=== PATIENT | female | born 1980 | race African-American/Black ===

== ENCOUNTER 2016-09-11 20:12 | Emergency (ER) | payer SELFPAY ==
[2016-09-11] MEDS ORDERED: ACETAMINOPHEN 325 MG TABLET PO ONE (22:24)
--- NOTE | 2016-09-11 22:25 | ER Document Report ---
ED Medical Screen (RME) - General Stated Complaint: COUGH Mode of Arrival: Ambulatory Information source: Patient Notes: Patient complains of generalized body aches that started yesterday. Patient reports right flank pain that started today. Patient reports vomiting once yesterday but none today. No diarrhea. Patient does take antiviral medications , but reports she has not had any recent lab work to check her viral load. Patient complains of chest pain with coughing. hx: HIV, herpes, HPV I have greeted and performed a rapid initial assessment of this patient. A comprehensive ED assessment and evaluation of the patient, analysis of test results and completion of the medical decision making process will be conducted by additional ED providers. TRAVEL OUTSIDE OF THE [place] 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 Denies: Hx Pacemaker - Immunizations Immunizations up to date: Yes Hx Diphtheria, Pertussis, Tetanus Vaccination: Yes Physical Exam - Vital signs Vitals: Temp Pulse Resp BP Pulse Ox 100.1 F 92 18 122/73 100 09/11/16 22:13 09/11/16 22:13 09/11/16 22:13 09/11/16 22:13 09/11/16 22:13 - Respiratory Respiratory status: No respiratory distress Breath sounds: Nonproductive cough Course - Vital Signs Vital signs: Temp Pulse Resp BP Pulse Ox 100.1 F 92 18 122/73 100 09/11/16 22:13 09/11/16 22:13 09/11/16 22:13 09/11/16 22:13 09/11/16 22:13
[2016-09-12 00:18] LABS: APPEARANCE,URINE SLIGHTLY-CLOUDY; BILIRUBIN,URINE NEGATIVE (NEGATIVE); GLUCOSE, URINE NEGATIVE (NEGATIVE); KETONES,URINE NEGATIVE (NEGATIVE); LEUKOCYTE ESTERASE,URINE NEGATIVE (NEGATIVE); NITRITE,URINE NEGATIVE (NEGATIVE); PROTEIN,URINE NEGATIVE (NEGATIVE); URINE SPECIFIC GRAVITY 1.027; UROBILINOGEN,URINE NEGATIVE mg/dL (<2.0)
[2016-09-12 00:35] LABS: ALANINE AMINOTRANSFERASE 25 U/L (9-52); ALBUMIN 4.3 g/dL (3.5-5.0); ALKALINE PHOSPHATASE 54 U/L (38-126); ANION GAP 11 (5-19); ASPARTATE AMINO TRANSFERASE 18 U/L (14-36); BILIRUBIN,TOTAL 0.5 mg/dL (0.2-1.3); BLOOD UREA NITROGEN 7 mg/dL (7-20); CALCIUM 9.3 mg/dL (8.4-10.2); CARBON DIOXIDE 24 mmol/L (22-30); CHLORIDE 104 mmol/L (98-107); CREATININE RESULT 0.67 mg/dL (0.52-1.25); GLUCOSE 93 mg/dL (75-110); POTASSIUM 3.7 mmol/L (3.6-5.0); SODIUM 138.7 mmol/L (137-145); TOTAL PROTEIN 7.2 g/dL (6.3-8.2)
[2016-09-12 00:52] LABS: HEMATOCRIT 37.3 % (36.0-47.0); HEMOGLOBIN 12.4 g/dL (12.0-15.5); HGB HCT DIFFERENCE -0.1; MEAN CORPUSCULAR HEMOGLOBIN 34.1 pg (27.0-33.4); MEAN CORPUSCULAR HGB CONC 33.4 g/dL (32.0-36.0); MEAN CORPUSCULAR VOLUME 102 fl (80-97); RED BLOOD COUNT 3.65 10^6/uL (3.72-5.28); WHITE BLOOD COUNT 4.7 10^3/uL (4.0-10.5)
[2016-09-12 01:00] LABS: BAND NEUTROPHILS % (MANUAL) 1 % (3-5); BASOPHILS % (MANUAL) 0 % (0-2); EOSINOPHILS % (MANUAL) 2 % (0-6); LYMPHOCYTES % (MANUAL) 21 % (13-45); TOTAL CELLS COUNTED 100
[2016-09-12 01:01] LABS: BURR CELLS SLIGHT; OVALOCYTES SLIGHT; POIKILOCYTOSIS SLIGHT; TOXIC GRANULATION SLIGHT; TOXIC VACUOLATION PRESENT
[2016-09-12] MEDS ORDERED: ONDANSETRON ODT 4 MG TAB (6 TAB/DSPK) PO PRN (01:53)
[2016-09-12] MEDS ORDERED: ONDANSETRON 4 MG TAB.RAPDIS PO ONE (01:53)
[2016-09-12] MEDS ORDERED: ACETAMINOPHEN WITH CODEINE #3 TABLET PO ONE (01:53)
[2016-09-12] MEDS ORDERED: ALBUTEROL SULFATE HFA (90 MCG/PUFF) 8 GM MDI (1 MDI/ER DISP) IH ONE (01:54)
--- NOTE | 2016-09-12 02:02 | ER Document Report ---
ED Respiratory Problem - General Chief Complaint: Cough Stated Complaint: COUGH Mode of Arrival: Ambulatory TRAVEL OUTSIDE OF THE [place] IN LAST 30 DAYS: No - Related Data Allergies/Adverse Reactions: amoxicillin [Amoxicillin] Allergy (Mild, Verified 07/18/15 00:10) "CANT EAT" azithromycin [From Zithromax Z-Matheus] Allergy (Mild, Verified 07/18/15 00:10) "MAKES ME SICK" Past Medical History - General Information source: Patient - Social History Smoking Status: Current Every Day Smoker Frequency of alcohol use: None Drug Abuse: None Family History: Reviewed & Not Pertinent Patient has suicidal ideation: No Patient has homicidal ideation: No - Past Medical History Cardiac Medical History: Reports: Hx Hypertension Pulmonary Medical History: Reports: Hx Asthma, Hx Bronchitis, Hx Pneumonia Renal/ Medical History: Denies: Hx Peritoneal Dialysis Musculoskeltal Medical History: Reports Hx Arthritis - neck, Reports Hx Musculoskeletal Deformity Skin Medical History: Reports Hx Eczema Psychiatric Medical History: Reports: Hx Depression Infectious Medical History: Reports: Hx HIV Past Surgical History: Reports: Hx Breast Surgery - right lumpectomy, Hx Section. Denies: Hx Pacemaker - Immunizations Immunizations up to date: Yes Hx Diphtheria, Pertussis, Tetanus Vaccination: Yes Hx Pneumococcal Vaccination: 05/06/11 Physical Exam - Vital signs Vitals: Temp Pulse Resp BP Pulse Ox 100.1 F 92 18 122/73 100 09/11/16 22:13 09/11/16 22:13 09/11/16 22:13 09/11/16 22:13 09/11/16 22:13 Course - Vital Signs Vital signs: Temp Pulse Resp BP Pulse Ox 100.1 F 92 18 122/73 100 09/11/16 22:13 09/11/16 22:13 09/11/16 22:13 09/11/16 22:13 09/11/16 22:13 - Laboratory Result Diagrams: 09/11/16 23:45 09/11/16 23:45 Laboratory results interpreted by me: 09/11/16 23:45 RBC 3.65 L MCV 102 H MCH 34.1 H Band Neutrophils % 1 L Monocytes % (Manual) 17 H Discharge - Discharge Clinical Impression: Influenza-like illness Condition: Stable Disposition: HOME, SELF-CARE Instructions: Influenza (OM), Upper Respiratory Illness (OM) Additional Instructions: Please call [phone] for the results of your flu swab. Prescriptions: Acetaminophen with Codeine [Tylenol with Codeine #3 Tablet] 1 tab PO Q4 PRN #14 tab PRN Reason: Oseltamivir Phosphate [Tamiflu 75 mg Capsule] 75 mg PO BID #10 capsule Forms: Return to Work
[2016-09-12 02:44] VITALS: BP 126/84
--- NOTE | 2016-09-12 03:59 | ER Document Report ---
ED General - General Mode of Arrival: Ambulatory Information source: Patient TRAVEL OUTSIDE OF THE [place] IN LAST 30 DAYS: No - HPI Patient complains to provider of: Cough Onset: Last week Onset/Duration: Intermittent, Worse Associated symptoms: Body/muscle aches, Nonproductive cough, Fever, Sore throat <SANJUANITA CHAMBERS - Last Filed: 09/12/16 03:59> <ANA CHAVEZ - Last Filed: 09/12/16 04:39> - General Chief Complaint: Cough Stated Complaint: COUGH Notes: Patient is a 35-year-old female with history of HIV presenting to the emergency department concerned of cough and sore throat for the past week intermittently, but it became acutely worse yesterday. Patient states that she had a fever and was given Tylenol here in the emergency room. Patient also complains of body aches. Patient states that she received the flu shot this year, and that her last CD4 was last month. Patient reports that she is compliant with all of her HIV medications. (SANJUANITA CHAMBERS) - Related Data Allergies/Adverse Reactions: amoxicillin [Amoxicillin] Allergy (Mild, Verified 07/18/15 00:10) "CANT EAT" azithromycin [From Zithromax Z-Matheus] Allergy (Mild, Verified 07/18/15 00:10) "MAKES ME SICK" Past Medical History - General Information source: Patient - Social History Smoking Status: Current Every Day Smoker Frequency of alcohol use: None Drug Abuse: None Lives with: Spouse/Significant other Family History: Reviewed & Not Pertinent Patient has suicidal ideation: No Patient has homicidal ideation: No - Past Medical History Cardiac Medical History: Reports: Hx Hypertension Pulmonary Medical History: Reports: Hx Asthma, Hx Bronchitis, Hx Pneumonia Renal/ Medical History: Denies: Hx Peritoneal Dialysis Musculoskeltal Medical History: Reports Hx Arthritis - neck, Reports Hx Musculoskeletal Deformity Skin Medical History: Reports Hx Eczema Psychiatric Medical History: Reports: Hx Depression Infectious Medical History: Reports: Hx HIV, Other - Herpes, HPV Past Surgical History: Reports: Hx Breast Surgery - right lumpectomy, Hx Section - Immunizations Immunizations up to date: Yes Hx Diphtheria, Pertussis, Tetanus Vaccination: Yes Hx Pneumococcal Vaccination: 05/06/11 <SANJUANITA CHAMBERS - Last Filed: 09/12/16 03:59> Review of Systems - Review of Systems Constitutional: See HPI, Fever, Other - Body aches EENT: See HPI, Throat pain Cardiovascular: No symptoms reported Respiratory: See HPI, Cough Gastrointestinal: No symptoms reported Genitourinary: No symptoms reported Female Genitourinary: No symptoms reported Musculoskeletal: No symptoms reported Skin: No symptoms reported Hematologic/Lymphatic: No symptoms reported Neurological/Psychological: No symptoms reported -: Yes All other systems reviewed and negative <SANJUANITA CHAMBERS - Last Filed: 09/12/16 03:59> Physical Exam - Vital signs Interpretation: No: Febrile - General General appearance: Alert - HEENT Head: Normocephalic, Atraumatic Eyes: Normal Pupils: PERRL Pharynx: No: Erythema, Exudate - Respiratory Respiratory status: No respiratory distress Chest status: Nontender Breath sounds: Nonproductive cough Chest palpation: Normal - Cardiovascular Rhythm: Regular Heart sounds: Normal auscultation Murmur: No - Abdominal Inspection: Normal Distension: No distension Bowel sounds: Normal Tenderness: Nontender Organomegaly: No organomegaly - Back Back: Normal, Nontender - Extremities General upper extremity: Normal inspection, Nontender, Normal color, Normal ROM , Normal temperature General lower extremity: Normal inspection, Nontender, Normal color, Normal ROM , Normal temperature, Normal weight bearing - Neurological Neuro grossly intact: Yes Cognition: Normal Robert Coma Scale Eye Opening: Spontaneous Robert Coma Scale Verbal: Oriented [place] Coma Scale Motor: Obeys Commands [place] Coma Scale Total: 15 Speech: Normal - Psychological Associated symptoms: Normal affect, Normal mood - Skin Skin Temperature: Warm Skin Moisture: Dry Skin Color: Normal <SANJUANITA CHAMBERS - Last Filed: 09/12/16 03:59> Course - Laboratory Result Diagrams: 09/11/16 23:45 09/11/16 23:45 <SANJUANITA CHAMBERS - Last Filed: 09/12/16 03:59> - Laboratory Result Diagrams: 09/11/16 23:45 09/11/16 23:45 <ANA CHAVEZ - Last Filed: 09/12/16 04:39> - Re-evaluation Re-evalutation: 09/12/16 Patient is a [age] female who comes in complaining of cough, congestion, sore throat, body aches. Blood work within normal limits. Patient is been taking her antivirals. Patient was last seen in the HIV clinic last month. Lungs are clear. No acute findings on chest x-ray. Patient will be flu swab which she does not want to wait for results. She'll be given a prescription for Tamiflu and is to call for the results of her flu swab. She has been informed that sometimes the test is unreliable and could have a false negative. Patient understands and agrees with this plan. She'll be given Tylenol with codeine for cough. No evidence for bacterial infection. Return if immediately if any worsening or concerning symptoms. Understands and agrees with plan. (ANA CHAVEZ) - Vital Signs Vital signs: Temp Pulse Resp BP Pulse Ox 98.4 F 75 17 126/84 H 98 09/12/16 02:14 09/12/16 02:14 09/12/16 02:14 09/12/16 02:14 09/12/16 02:14 (SANJUANITA CHAMBERS) (ANA CHAVEZ) - Laboratory Laboratory results interpreted by me: 09/11/16 23:45 RBC 3.65 L MCV 102 H MCH 34.1 H Band Neutrophils % 1 L Monocytes % (Manual) 17 H (SANJUANITA CHAMBERS) (ANA CHAVEZ) Discharge <SANJUANITA CHAMBERS - Last Filed: 09/12/16 03:59> <ANA CHAVEZ - Last Filed: 09/12/16 04:39> - Discharge Clinical Impression: Influenza-like illness Condition: Stable Disposition: HOME, SELF-CARE Instructions: Influenza ([facility]), Upper Respiratory Illness ([facility]) Additional Instructions: Please call [phone] for the results of your flu swab. Prescriptions: Acetaminophen with Codeine [Tylenol with Codeine #3 Tablet] 1 tab PO Q4 PRN #14 tab PRN Reason: Oseltamivir Phosphate [Tamiflu 75 mg Capsule] 75 mg PO BID #10 capsule Forms: Return to Work Scribe Attestation: 09/12/16 04:39 I personally performed the services described in the documentation, reviewed and edited the documentation which was dictated to the scribe in my presence, and it accurately records my words and actions. (ANA CHAVEZ) Scribe Documentation - Scribe Written by Scribe:: Sanjuanita Chambers 09/12/2016 [id number] acting as scribe for :: Maryann <SANJUANITA CHAMBERS - Last Filed: 09/12/16 03:59>
== END 2016-09-12 02:40 | disposition home or self-care (01) ==
LOC: ER 20:12
DX: J11.1 Influenza due to unidentified influenza virus with other respiratory manifestations (principal); M79.1 Myalgia; R05 Cough; I10 Essential (primary) hypertension; J45.909 Unspecified asthma, uncomplicated; F17.200 Nicotine dependence, unspecified, uncomplicated; Z21 Asymptomatic human immunodeficiency virus [HIV] infection status; Z79.899 Other long term (current) drug therapy; Z88.0 Allergy status to penicillin; Z88.1 Allergy status to other antibiotic agents; Z87.01 Personal history of pneumonia (recurrent)
CPT/HCPCS: 99283; 36415; 87040; 84703; 85025; 80053; 81001; 87804; 71020; S0119; J3490

== ENCOUNTER 2017-03-25 06:33 | Emergency (ER) | payer SELFPAY ==
--- NOTE | 2017-03-25 07:06 | ER Document Report ---
ED General - General Mode of Arrival: Ambulatory Information source: Patient TRAVEL OUTSIDE OF THE [place] IN LAST 30 DAYS: No - HPI Onset: Other - 2-3 days ago; refer to HPI notes Associated symptoms: Productive cough, Earache, Sore throat Similar symptoms previously: Yes Recently seen / treated by doctor: No <JAIRO SIMS - Last Filed: 03/25/17 07:42> <MIHAELA GREEN - Last Filed: 03/25/17 09:02> - General Chief Complaint: Cold Symptoms Stated Complaint: SORE THROAT Time Seen by Provider: 03/25/17 06:50 - HPI Notes: Patient is a 36 year old female presenting to the emergency department for cold like symptoms x 2-3 days. Patient states she has a productive cough with clear- yellow sputum. Patient has throat pain which is exacerbated with swallowing and coughing. Patient also states she has some chest discomfort but only when she is coughing. Patient also complains of congestion, ear discomfort, and general malaise. Patient states she was diagnosed with bacterial vaginosis and is taking Flagyl and also states she recently started control. Patient denies any fever but states she has not taken her temperature. Patient is to see Dr. Gerber however she states she does not have Medicaid anymore and she does not know what to do which is why she came to the emergency department. Patient is allergic to amoxicillin and azithromycin. Patient has a history of HIV and is treated for such at the clinic in [place]. (JAIRO SIMS) - Related Data Allergies/Adverse Reactions: amoxicillin [Amoxicillin] Allergy (Mild, Verified 03/25/17 06:39) "CANT EAT" azithromycin [From Zithromax Z-Matheus] Allergy (Mild, Verified 03/25/17 06:39) "MAKES ME SICK" Past Medical History - General Information source: Patient - Social History Smoking Status: Current Every Day Smoker Cigarette use (# per day): Yes - 1 ppd Family History: None Patient has suicidal ideation: No Patient has homicidal ideation: No - Past Medical History Cardiac Medical History: Reports: Hx Hypertension Pulmonary Medical History: Reports: Hx Asthma, Hx Bronchitis, Hx Pneumonia Musculoskeltal Medical History: Reports Hx Arthritis - neck, Reports Hx Musculoskeletal Deformity Skin Medical History: Reports Hx Eczema Psychiatric Medical History: Reports: Hx Depression Infectious Medical History: Reports: Hx HIV Past Surgical History: Reports: Hx Breast Surgery - right lumpectomy, Hx Section - Immunizations Immunizations up to date: Yes Hx Diphtheria, Pertussis, Tetanus Vaccination: Yes Hx Pneumococcal Vaccination: 05/06/11 <JAIRO SIMS - Last Filed: 03/25/17 07:42> Review of Systems - Review of Systems Constitutional: See HPI, Malaise. denies: Fever EENT: See HPI, Ear pain, Nose congestion, Nose discharge, Throat pain Cardiovascular: See HPI, Chest pain Respiratory: See HPI, Cough, Sputum Gastrointestinal: No symptoms reported Genitourinary: No symptoms reported Female Genitourinary: No symptoms reported Musculoskeletal: No symptoms reported Skin: No symptoms reported Hematologic/Lymphatic: No symptoms reported Neurological/Psychological: No symptoms reported -: Yes All other systems reviewed and negative <JAIRO SIMS - Last Filed: 03/25/17 07:42> Physical Exam - Vital signs Interpretation: Normal <JAIRO SIMS - Last Filed: 03/25/17 07:42> <MIHAELA GREEN - Last Filed: 03/25/17 09:02> - Vital signs Vitals: Temp Pulse Resp BP Pulse Ox 98.1 F 66 16 127/78 H 97 03/25/17 06:39 03/25/17 06:39 03/25/17 06:39 03/25/17 06:39 03/25/17 06:39 - Notes Notes: GENERAL: Alert, interacts well. No acute distress. HEAD: Normocephalic, atraumatic. EYES: Appear normal. Pupils equal, round, and reactive to light. ENT: Moist mucus membranes. Tongue midline. Nasal drainage. Oropharynx has erythema and uvula edema. TM's are slightly retracted but clear with no erythema. NECK: Full range of motion. Supple. Trachea midline. No anterior cervical lymphadenopathy. LUNGS: Coarse breath sounds bilaterally, cough, no wheezes, rales, or rhonchi. No respiratory distress. HEART: Regular rate and rhythm. No murmurs, gallops, or rubs. EXTREMITIES: Moves all 4 extremities spontaneously. Normal strength. No edema. NEUROLOGICAL: Alert and oriented x3. Normal speech. No focal neurological deficits. GSC 15. PSYCH: Normal affect, normal mood. SKIN: Warm, dry, normal turgor. No rashes or lesions noted. (JAIRO SIMS) Course - Laboratory Result Diagrams: 03/25/17 08:02 <MIHAELA GREEN - Last Filed: 03/25/17 09:02> - Vital Signs Vital signs: Temp Pulse Resp BP Pulse Ox 98.1 F 66 16 127/78 H 97 03/25/17 06:39 03/25/17 06:39 03/25/17 06:39 03/25/17 06:39 03/25/17 06:39 - Laboratory Laboratory results interpreted by me: 03/25/17 08:02 MCV 106 H MCH 35.9 H Discharge <JAIRO SIMS - Last Filed: 03/25/17 07:42> <MIHAELA GREEN - Last Filed: 03/25/17 09:02> - Discharge Clinical Impression: Bronchitis Pharyngitis Qualifiers: Pharyngitis/tonsillitis etiology: unspecified etiology Qualified Code(s): J02.9 - Acute pharyngitis, unspecified Upper respiratory tract infection Qualifiers: URI type: unspecified URI Qualified Code(s): J06.9 - Acute upper respiratory infection, unspecified Condition: Stable Disposition: HOME, SELF-CARE Additional Instructions: Upper Respiratory Illness You have a viral infection of the respiratory passages -- a "cold." This common infection causes nasal congestion, drainage, and often sore throat and cough. It is caused by a virus and is highly contagious. The disease usually lasts a week or more, though the worst symptoms are usually over in 3 or 4 days. There is no "cure" for the viral infection -- it must run its course. If there is a complication, such as bacterial infection in the nose, sinuses, middle ear, or bronchial tubes, antibiotics may be required, but antibiotics won 't affect the virus. If you smoke, you should STOP!! Drink plenty of fluids. A humidifier may help. An expectorant medication or decongestant may make you more comfortable. Use acetaminophen or ibuprofen for fever or aches. See the doctor if fever persists over two or three days, if there is any significant worsening of your symptoms, or if you simply fail to improve as expected. TAKE THE MEDICATION PRESCRIBED. DRINK PLENTY OF FLUIDS. GET PLENTY OF REST. TRY TO STOP SMOKING. FOLLOW UP WITH A LOCAL MEDICAL DOCTOR IF NOT IMPROVING. Prescriptions: Hydrocodone/Acetaminophen [Hydrocodon-Acetaminophen 5-325] 1 each PO Q4 PRN #15 tablet PRN Reason: Prednisone 10 mg PO TID #10 tablet Scribe Attestation: 03/25/17 09:02 I personally performed the services described in the documentation, reviewed and edited the documentation which was dictated to the scribe in my presence, and it accurately records my words and actions. (MIHAELA GREEN) Scribe Documentation - Scribe Written by Rosario:: Rosario Connors 03/25/2017 7:45 acting as scribe for :: Kristy <JAIRO SIMS - Last Filed: 03/25/17 07:42>
--- NOTE | 2017-03-25 07:45 | RADIOLOGY REPORT (SQ) ---
EXAM DESCRIPTION: CHEST PA/LAT COMPLETED DATE/TIME: 03/25/2017 7:27 am REASON FOR STUDY: cough, congestion, HIV+ COMPARISON: Chest x-ray 09/11/2016. EXAM PARAMETERS: NUMBER OF VIEWS: two views TECHNIQUE: Digital Frontal and Lateral radiographic views of the chest acquired. RADIATION DOSE: NA LIMITATIONS: none FINDINGS: LUNGS AND PLEURA: No consolidation, pneumothorax or pleural effusion. MEDIASTINUM AND HILAR STRUCTURES: No masses or contour abnormalities. HEART AND VASCULAR STRUCTURES: Heart normal size. No evidence for failure. BONES: No acute findings. HARDWARE: None in the chest. IMPRESSION: No acute radiographic finding in the chest. TECHNICAL DOCUMENTATION: JOB ID: [id number] [employer]- All Rights Reserved
[2017-03-25 08:13] LABS: ABSOLUTE BASOPHILS # (AUTO) 0.1 10^3/uL (0.0-0.2); ABSOLUTE EOSINOPHILS # (AUTO) 0.1 10^3/uL (0.0-0.6); ABSOLUTE LYMPHOCYTES (AUTO) 1.4 10^3/uL (0.5-4.7); ABSOLUTE MONOCYTES (AUTO) 0.9 10^3/uL (0.1-1.4); ABSOLUTE NEUT (AUTO) 4.7 10^3/uL (1.7-8.2); BASOPHILS % (AUTO) 0.7 % (0-2); EOSINOPHILS % (AUTO) 1.3 % (0-6); HEMATOCRIT 39.5 % (36.0-47.0); HEMOGLOBIN 13.4 g/dL (12.0-15.5); HGB HCT DIFFERENCE 0.7; MEAN CORPUSCULAR HEMOGLOBIN 35.9 pg (27.0-33.4); MEAN CORPUSCULAR VOLUME 106 fl (80-97); MONOCYTES % (AUTO) 12.8 % (3-13); RED BLOOD COUNT 3.74 10^6/uL (3.72-5.28); RED CELL DISTRIBUTION WIDTH 13.3 % (11.5-14.0); SEGMENTED NEUTROPHILS % (AUTO) 66.2 % (42-78); WHITE BLOOD COUNT 7.2 10^3/uL (4.0-10.5)
[2017-03-25] MEDS ORDERED: PREDNISONE 20 MG TABLET PO ONE (09:02)
[2017-03-25] MEDS ORDERED: HYDROCODONE/ACETAMINOPHEN 5-325 MG TABLET PO ONE (09:03)
[2017-03-25 09:12] VITALS: BP 128/79
== END 2017-03-25 09:22 | disposition home or self-care (01) ==
LOC: ER 06:33
DX: J02.9 Acute pharyngitis, unspecified (principal); J06.9 Acute upper respiratory infection, unspecified; J40 Bronchitis, not specified as acute or chronic; R05 Cough; R53.81 Other malaise; R07.89 Other chest pain; R09.81 Nasal congestion; J34.89 Other specified disorders of nose and nasal sinuses; F17.210 Nicotine dependence, cigarettes, uncomplicated; N76.0 Acute vaginitis; B96.89 Other specified bacterial agents as the cause of diseases classified elsewhere; Z88.0 Allergy status to penicillin; Z88.1 Allergy status to other antibiotic agents; Z21 Asymptomatic human immunodeficiency virus [HIV] infection status; Z87.01 Personal history of pneumonia (recurrent)
CPT/HCPCS: 99283; 36415; 85025; 71020; J7512

== ENCOUNTER 2017-08-23 11:44 | Emergency (ER) | payer OTHER ==
[2017-08-23 11:52] VITALS: BP 122/79
[2017-08-23] MEDS ORDERED: CYCLOBENZAPRINE HCL 10 MG TABLET PO ONE (12:16)
[2017-08-23] MEDS ORDERED: ACETAMINOPHEN 325 MG TABLET PO ONE (12:16)
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
[2017-08-23] MEDS ORDERED: IBUPROFEN 800 MG TABLET PO ONE (13:45)
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
== END 2017-08-23 14:37 | disposition home or self-care (01) ==
LOC: ER 11:44
DX: M54.2 Cervicalgia (principal); V87.7XXA Person injured in collision between other specified motor vehicles (traffic), initial encounter; F17.200 Nicotine dependence, unspecified, uncomplicated
CPT/HCPCS: 72050; 99283